=== PATIENT | male | born 1995 | race Caucasian/White ===

== ENCOUNTER → 2017-02-23 | Outpatient (CLI) | payer SELFPAY ==
[~2017-02-23] MED LIST: AZIT200SU PO; Cipro500 MG PO; Cyclobenzaprine5 MG PO; Zofran Odt4 MG SL
== END | disposition home or self-care (01) ==
LOC: LAB EV 14:19
DX: L08.9 Local infection of the skin and subcutaneous tissue, unspecified (principal)
CPT/HCPCS: 87070; 87075; 87077; 87186; 87205

== ENCOUNTER 2017-02-27 11:36 | Emergency (ER) | payer SELFPAY ==
[~2017-02-27] VITALS: Ht 170.2 cm; Wt 60.8 kg
[~2017-02-27 11:36] MED LIST changes: -Cipro500 MG PO; -Zofran Odt4 MG SL
[2017-02-27] MEDS ORDERED: Cipro500 MG PO (12:46)
[2017-02-27] MEDS ORDERED: Zofran Odt4 MG SL (12:47)
== END 2017-02-27 12:55 | disposition home or self-care (01) ==
LOC: ER 11:36
DX: L02.413 Cutaneous abscess of right upper limb (principal); Z79.2 Long term (current) use of antibiotics; Z87.891 Personal history of nicotine dependence
CPT/HCPCS: 99283

== ENCOUNTER 2023-01-01 06:12 | Emergency (ER) | payer SELFPAY ==
[~2023-01-01] VITALS: Ht 170.2 cm; Wt 59.0 kg
[~2023-01-01 06:12] MED LIST changes: +Cipro500 MG PO; +Zofran Odt4 MG SL
[2023-01-01] MEDS ORDERED: ACET500 PO (06:50)
[2023-01-01] MEDS ORDERED: IBUP600 PO (06:50)
[2023-01-01] MEDS ORDERED: PRED20 PO (08:28)
[2023-01-01] MEDS ORDERED: NAPR500 PO (08:28)
[2023-01-01] MEDS ORDERED: AMOCLA875 PO (08:28)
[2023-01-01 08:57] VITALS: BP 123/84
== END 2023-01-01 09:10 | disposition home or self-care (01) ==
LOC: ER 06:12
DX: K02.9 Dental caries, unspecified (principal); Z87.891 Personal history of nicotine dependence
CPT/HCPCS: 96365; 96375; 99282-25; J1100; J1885

== ENCOUNTER 2023-01-24 22:52 | Emergency (ER) | payer SELFPAY ==
[~2023-01-24] VITALS: Ht 170.2 cm; Wt 59.9 kg
[~2023-01-24 22:52] MED LIST changes: +ACET500 PO; +AMOCLA875 PO; +IBUP600 PO; +NAPR500 PO; +PRED20 PO
[2023-01-24] MEDS ORDERED: Cleocin HCl300 MG PO (23:05)
[2023-01-24] MEDS ORDERED: PERIDEX15 ML MM (23:05)
[2023-01-24] MEDS ORDERED: IBU600 MG PO (23:05)
[2023-01-24 23:14] VITALS: BP 137/82
== END 2023-01-24 23:15 | disposition home or self-care (01) ==
LOC: ER 22:52
DX: K08.89 Other specified disorders of teeth and supporting structures (principal); Z87.891 Personal history of nicotine dependence
CPT/HCPCS: 99282; A9270

== ENCOUNTER 2023-03-02 22:03 | Emergency (ER) | payer SELFPAY ==
[~2023-03-02] VITALS: Ht 170.2 cm; Wt 59.0 kg
[~2023-03-02 22:03] MED LIST changes: +Cleocin HCl300 MG PO; +IBU600 MG PO; +PERIDEX15 ML MM
[2023-03-02 22:32] VITALS: BP 128/72
== END 2023-03-03 | disposition home or self-care (01) ==
LOC: ER 22:03
DX: S61.211A Laceration without foreign body of left index finger without damage to nail, initial encounter (principal); W25.XXXA Contact with sharp glass, initial encounter; Z79.899 Other long term (current) drug therapy
CPT/HCPCS: 12001; 99282-25